=== PATIENT | female | born 1945 | race Caucasian/White ===

== ENCOUNTER → 2017-08-20 | Outpatient (CLI) | payer BC, MEDICARE | END | disposition home or self-care (01) | LOC: LABWHC1 11:18 | PROVIDERS: ATTEND Family Medicine | DX: E87.5 Hyperkalemia (principal) | CPT/HCPCS: 36415; 84132 ==

== ENCOUNTER → 2018-07-23 | Outpatient (CLI) | payer OTHER, MEDICARE ==
--- NOTE | 2018-07-23 22:00 | CONS ---
CONSULTATION DATE OF SERVICE: 07/23/2018. HISTORY: A 73-year-old old lady has been re-evaluated in Sleep Center for obstructive sleep apnea-hypopnea syndrome. INDICATIONS: The patient has a history of severe obstructive sleep apnea since 2010. At that time, apnea-hypopnea index 44.9 with oxygen desaturation to 86%. Since that time, patient is on treatment with CPAP with a pressure of 10 cm of water. C continued to use her equipment for this years, but presently she cannot use her machine because mask is broken. Sleep schedule is from 11 p.m. to 9 or 10 a.m. Sometimes she has problems with falling asleep. She has TV set in bedroom. She wakes up from sleep 3 times with nocturia. In the morning she wakes up tired. She may fall asleep during the day. Has episodes of irritability and depression. [place] Sleepiness Scale is 10. PAST MEDICAL HISTORY: Positive for hypertension, aortic dissection in the chest, stroke, left leg DVT. MEDICATIONS: 1. Metoprolol. 2. Folic acid. 3. Atorvastatin. 4. Omeprazole. 5. Metformin. 6. Losartan. 7. Citalopram. 8. Gabapentin. SOCIAL HISTORY: Negative for smoking or using alcohol. FAMILY HISTORY: Hypertension, heart problems, hyperlipidemia, arthritis, asthma, bronchitis, snoring, pneumonia, headaches, cancer. REVIEW OF SYSTEMS: Awakenings from sleep, sleepiness during the day. PHYSICAL EXAM: A 73-year-old lady without distress on wheelchair. BP 108/73, HR 64, RR 17, height 58.5 inches, weight 178.2 pounds, body mass index 39.2, temperature 97.7, oxygen saturation at room air 98%. HEENT: Oropharynx low position of soft palate. NECK: Supple. No JVD. Thyroid is not palpable. LUNGS Clear to percussion and to auscultation. Good air exchange. No wheezing or rhonchi. HEART S1, S2 regular. No murmurs, gallops, or rubs. ABDOMEN Obese, soft, nontender. Bowel sounds are present. No organomegaly appreciated. ABDOMEN: Obese. EXTREMITIES: Braces on her legs and on the left foot. Patient is in a wheelchair. CARTRIDGE BELT PUNCHER Awake, alert, and oriented X3. Cranial nerves 2 to 7 intact. There is no fasciculation or atrophy. noted. No focal deficits observed. IMPRESSION: 1. History of severe obstructive sleep apnea since 2010. Low position of soft palate. The patient continued to use CPAP equipment until the mask was broken. Presently sometimes snoring with CPAP machine when she was able to use it. 2. Hypertension. 3. Status post surgical treatment of aortic dissection in the chest. 4. History of stroke. 5. History of deep venous thrombosis of the left leg, left leg brace. 6. Acid reflux. 7. Hyperlipidemia. PLAN: 1. Prescription for all necessary CPAP supplies including mask, tube, filters. 2. Evaluate CPAP titration for evaluation of effective CPAP pressure at the present time. Previous sleep study done several years ago. The patient has awakenings from sleep while on treatment with CPAP. 3. Sleep hygiene with normal time in bed for at least 8 hours. 4. The patient does not drive. Thank you very much for allowing me to participate in management of your patient. Eliud Lara MD, PhD, FAASM Diplomat of [place] [employer] Specialties [employer] Board of Internal Medicine Coat Finisher of [facility] [place] MMODL / IJN: [id number] /
== END ==
LOC: SLEEP 15:32
PROVIDERS: ATTEND Internal Medicine
DX: G47.33 Obstructive sleep apnea (adult) (pediatric) (principal); I10 Essential (primary) hypertension; K21.9 Gastro-esophageal reflux disease without esophagitis; E78.5 Hyperlipidemia, unspecified; Z86.718 Personal history of other venous thrombosis and embolism; Z86.73 Personal history of transient ischemic attack (TIA), and cerebral infarction without residual deficits; Z99.89 Dependence on other enabling machines and devices; Z98.890 Other specified postprocedural states
CPT/HCPCS: 99211

== ENCOUNTER → 2019-02-19 | Outpatient (CLI) | payer OTHER, MEDICARE ==
--- NOTE | 2019-02-19 11:45 | SFUN ---
SLEEP CENTER FOLLOW UP NOTE DATE OF SERVICE: 02/19/2019 A 74-year-old lady who has been followed in the Sleep Center for treatment of obstructive and central sleep apnea-hypopnea syndrome. Recently, patient had BiPAP titration, received new BiPAP unit and this is her first visit after she received her machine. Patient is able to sleep with the machine every night for the whole night and she feels better while she is using her BiPAP. She sleeps better but she still feels sleepiness during the day. [place] Sleepiness Scale of the normal range is 4. I checked her BiPAP unit. The pressure is 15/11 cm of water. Usage is 67/67 days and 64/67 days for more than 4 hours with average usage is 7.7 hours per night, which is great compliance. Leak 23 L/minute. Patient using full-face Dream Wear mask. Apnea- hypopnea index for that period of time 17.0 with total apnea index 16.1, and central apnea index 9.9 with the reading for 1 month. She has apnea-hypopnea index 16.3 with a central apnea index 9.5. MEDICATIONS: Metoprolol, folic acid, atorvastatin, omeprazole, metformin, losartan, citalopram, gabapentin, melatonin. PHYSICAL EXAM: Patient in no distress. She is in a wheelchair. BP 133/68, HR 52, RR 14m weight 179, temp 98.2. OROPHARYNX: Extremely low position of soft palate. Mallampati 4. ABDOMEN: Obese. Neck Supple, no JVD. Thyroid is not palpable. LUNGS Clear to percussion and to auscultation. Good air exchange. No wheezing or rhonchi. HEART S1, S2 regular. No murmurs, gallops, or rubs. EXTREMITIES No clubbing or cyanosis. SCALE ADJUSTER Awake, alert, and oriented X3. Cranial nerves 2 to 7 intact. There is no fasciculation or atrophy. noted. No focal deficits observed. IMPRESSION: 1. Obstructive and central sleep apnea-hypopnea syndrome. Patient demonstrated great compliance with treatment, benefitting from treatment. Original sleep study showed severe sleep apnea with apnea-hypopnea index 44.9. Presently on the machine apnea- hypopnea index reduced to 16.3 with a central apnea index 9.5. 2. Obesity. 3. Hypertension. 4. History of stroke. 5. History of deep venous thrombosis of left leg. 6. Acid reflux. 7. Hyperlipidemia. PLAN: 1. I will decrease pressure down to 14/10 cm of water with a goal to see less amount of central apneas. 2. Patient will continue to use BiPAP equipment every night for the whole night. 3. Watching and losing weight. 4. Sleep hygiene with regular time in bed for at least 8 hours. 5. Will maintain prescriptions for all necessary CPAP supplies. Thank you very much for allowing me to participate in the management of patient. Sincerely, Eliud Lara MD, PhD, FAASM Diplomat of [place] Board [employer] Medical Specialties [employer] Board of Internal Medicine Water And Gas Helper of [facility] [place] MMODL / IJN: [id number] /
== END ==
LOC: SLEEP 10:24
PROVIDERS: ATTEND Internal Medicine
DX: G47.33 Obstructive sleep apnea (adult) (pediatric) (principal); E66.9 Obesity, unspecified; I10 Essential (primary) hypertension; K21.9 Gastro-esophageal reflux disease without esophagitis; E78.5 Hyperlipidemia, unspecified; Z86.718 Personal history of other venous thrombosis and embolism; Z86.73 Personal history of transient ischemic attack (TIA), and cerebral infarction without residual deficits; Z99.89 Dependence on other enabling machines and devices; Z79.899 Other long term (current) drug therapy; Z79.84 Long term (current) use of oral hypoglycemic drugs

== ENCOUNTER → 2019-04-27 | Outpatient (CLI) | payer OTHER, MEDICARE ==
--- NOTE | 2019-04-27 19:57 | BD ---
EXAMINATION TYPE: Axial Bone Density DATE OF EXAM: 04/27/2019 COMPARISON: 07/06/2015 CLINICAL HISTORY: 74-year-old female with disorder of bone Height: 57 IN Weight: 178 LBS RISK FACTORS HISTORY OF: Family History of Osteoporosis: GRANDMOTHER (P), AUNT (P) Active: MINIMAL Diet low in dairy products/other sources of calcium: YES Postmenopausal woman: AGE 54 Take estrogen and/or progesterone medications: NOT NOW How long: AGE 52-53 MEDICATIONS: Thyroid Medications: YES Which medication: ARMOUR How Lon MONTHS Additional Medications: ARMOUR, ELIQUIS, METOPROLOL,FOLIC ACID, OMEPRAZOLE, ATORVASTATIN, LOSARTAN, M ETFORMIN, AMLODIPINE, FREQUENT URINATION PILL, MOOD SWINGS,MED EXAM MEASUREMENTS: Bone mineral densitometry was performed using the [employer] System. Bone mineral density as measured about the Lumbar spine is: ----- L1-L4(G/cm2): 1.125 T Score Values are as follows: ----- L2: -1.2 ----- L3: 0.6 ----- L4: 0.2 ----- L1-L4: -0.5 Bone mineral density has: Increased 8.6% since study of: 07/06/2015 Bone mineral density about the R hip (g/cm2): 0.683 Bone mineral density about the L hip (g/cm2): 0.676 T Score values are as follows: -----R Neck: -2.6 -----L Neck: -2.6 -----R Total: -2.3 -----L Total: -3.0 Bone mineral density has: Decreased -3.0% since study of: 07/06/2015 IMPRESSION: Osteoporosis (T Score less than -2.5). There is increased fracture risk and therapy is usually indicated based on age. Re-Screen 1-2 years. NOTE: T-SCORE=SD OF THE YOUNG ADULT MEAN.
== END | disposition home or self-care (01) ==
LOC: RADBDWWP 08:38
PROVIDERS: ATTEND Family Medicine
DX: M81.0 Age-related osteoporosis without current pathological fracture (principal)
CPT/HCPCS: 77080

== ENCOUNTER → 2019-05-21 | Outpatient (CLI) | payer OTHER, MEDICARE ==
--- NOTE | 2019-05-21 11:28 | SFUN ---
SLEEP CENTER FOLLOW UP NOTE DATE OF SERVICE: 05/21/2019 This 74-year-old lady had been followed in sleep center for treatment of obstructive and central sleep apnea-hypopnea syndrome. During previous visit, I changed her regimen of BiPAP machine because she continued to have significant abnormalities of respiration. The patient feels well with the machine, she likes the level of the pressure. She is able to sleep with the machine well. [place] Sleepiness Scale today is 9. I checked BiPAP unit. Maximal inspiratory pressure 15, minimal expiratory pressure 4, pressure support 4. average pressure 14.3/10.3. Apnea-hypopnea index reading 18.6 with apnea index 17.3, and central index 7 for the last month. MEDICATIONS: Metoprolol, folic acid, atorvastatin, omeprazole, metformin, losartan, citalopram, gabapentin, melatonin. PHYSICAL EXAMINATION: During physical exam, patient in no distress. VITAL SIGNS: BP 138/72, HR 58, RR 16, height 4 feet 8-1/2 inches. Weight 177 pounds which is 2 pounds less than during previous visit. HEENT: PERRLA, EOMI. Oropharynx extremely low position of soft palate. Mallampati 4. NECK: Supple, no JVD. Thyroid is not palpable. LUNGS: Clear to percussion and to auscultation. Good air exchange. No wheezing or rhonchi. HEART: S1, S2 regular. No murmurs, gallops, or rubs. ABDOMEN: Obese. EXTREMITIES No clubbing or cyanosis. POWDER MILL OPERATOR Awake, alert, and oriented X3. Cranial nerves 2 to 7 intact. There is no fasciculation or atrophy. noted. No focal deficits observed. IMPRESSION: 1. Obstructive and central sleep apnea-hypopnea syndrome. Patient demonstrated great compliance with treatment, but reading from the machine still showed abnormalities of respiration with apnea-hypopnea index 18.6. Original sleep study showed severe sleep apnea-hypopnea syndrome with apnea-hypopnea index 44.9. 2. Hypertension. 3. Obesity. 4. History of stroke. 5. History of deep venous thrombosis of left leg. 6. Acid reflux. 7. Hyperlipidemia. PLAN: 1. I will adjust maximal inspiratory pressure to 17.4. 2. Patient will continue to use equipment every night for the whole night. 3. Watching and losing weight. 4. Sleep hygiene with regular time in bed for at least 8 hours. 5. Follow-up visit in 2 months or earlier if patient feels any problems. Thank you very much for allowing me to participate in management of your patient. Sincerely, Eliud Lara MD, PhD, FAASM Diplomat of [place] [employer] Medical Specialties [employer] Board of Internal Medicine Diversified Crops Farmer of [facility] [place] MMODL / DORONN: [id number] /
== END ==
LOC: SLEEP 10:15
PROVIDERS: ATTEND Internal Medicine
DX: G47.33 Obstructive sleep apnea (adult) (pediatric) (principal); I10 Essential (primary) hypertension; E66.9 Obesity, unspecified; K21.9 Gastro-esophageal reflux disease without esophagitis; E78.5 Hyperlipidemia, unspecified; Z86.73 Personal history of transient ischemic attack (TIA), and cerebral infarction without residual deficits; Z86.718 Personal history of other venous thrombosis and embolism; Z79.899 Other long term (current) drug therapy; Z79.84 Long term (current) use of oral hypoglycemic drugs

== ENCOUNTER → 2019-06-12 | Outpatient (CLI) | payer OTHER, MEDICARE ==
--- NOTE | 2019-06-12 10:35 | CT ---
EXAMINATION TYPE: CT abdomen pelvis wo con DATE OF EXAM: 06/12/2019 COMPARISON: 11/17/2013 HISTORY: bladder pain CT DLP: 751.7 mGycm Automated exposure control for dose reduction was used. TECHNIQUE: Helical acquisition of images was performed from the lung bases through the pelvis. FINDINGS: LUNG BASES: Heart is enlarged. Coronary artery calcification noted and there is atherosclerotic herrera e of the aorta. Sternotomy wires are seen. Subsegmental changes involving the lungs are typical of at electasis. LIVER/GB: Postcholecystectomy changes noted. PANCREAS: No significant abnormality is seen. SPLEEN: No significant abnormality is seen. ADRENALS: No significant abnormality is seen. KIDNEYS: No significant abnormality is seen. URINARY BLADDER: No significant abnormality is seen. ADENOPATHY: None visualized. OSSEOUS STRUCTURES: Hypertrophic and degenerative change of the spine. Scoliosis noted. BOWEL: Bowel gas pattern nonspecific with changes of diverticulosis. There is a hiatal hernia. OTHER: Uterus atrophic. Femorofemoral bypass graft noted. Atherosclerotic change of the aorta with no evidence of aneurysm. Lack of contrast limits assessment of the vasculature. IMPRESSION: 1. Diverticulosis of the colon
== END | disposition home or self-care (01) ==
LOC: RADCTMAIN 09:50
PROVIDERS: ATTEND Family Medicine
DX: K57.30 Diverticulosis of large intestine without perforation or abscess without bleeding (principal)
CPT/HCPCS: 74176

== ENCOUNTER → 2019-07-30 | Outpatient (CLI) | payer OTHER, MEDICARE ==
--- NOTE | 2019-07-30 13:11 | SFUN ---
SLEEP CENTER FOLLOW UP NOTE DATE OF SERVICE: 07/30/2019. A 74-year-old lady who has been followed in the Sleep Center for treatment of obstructive and central sleep apnea-hypopnea syndrome. Patient continued to use BiPAP equipment every night for the whole night. She sleeps well with that. There is no snoring. She is getting all her supplies in time. [place] Sleepiness Scale today is 7 which is normal. During the previous visit, apnea-hypopnea index was 18.6 with apnea index 17.3, and central index 7. At that time her maximal pressure was 15 and minimal was 14 and I increased the maximal inspiratory pressure to 17.4. I checked her BiPAP unit today, maximal inspiratory pressure 17.4, minimal respiratory pressure 4.0, pressure support 4.0 usage. Usage is 100% of the night, more than 4 hours with average usage 9.4 hours per night. Average pressure 14.7/10.7. Leak is only 1 L/minute, which is absolutely perfect. Apnea-hypopnea index 12.6 with apnea index alone 0.6 and central apnea index 5.6 which showed improvement comparing with the reading during previous visit, after pressure was increased to 17.4. MEDICATIONS: Metoprolol, folic acid, atorvastatin, omeprazole, metformin, losartan, citalopram, gabapentin, melatonin. PHYSICAL EXAM: Patient in no distress, on wheelchair. BP 123/58, HR 59, RR 16, height 4, 11, weight 182.2, which is about 5 pounds more than during the previous visit. Body mass index 36.7, temperature 97.0, oxygen saturation on room air 96%. Oral oropharynx extremely low position of soft palate. Mallampati 4. ABDOMEN: Obese. NECK: Supple, no JVD. Thyroid is not palpable. LUNGS: Clear to percussion and to auscultation. Good air exchange. No wheezing or rhonchi. HEART: S1, S2 regular. No murmurs, gallops, or rubs. EXTREMITIES: No clubbing or cyanosis. CLAIMS SUPERVISOR: Awake, alert, and oriented X3. Cranial nerves 2 to 7 intact. There is no fasciculation or atrophy. noted. No focal deficits observed. IMPRESSION: 1. Obstructive and central sleep apnea-hypopnea syndrome. Patient demonstrated 100% compliance with treatment, benefitting from treatment. 2. Patient still has some abnormalities of respiration according to the machine with total apnea-hypopnea index 12.6 and central apnea index 5.6. 3. Hypertension. 4. Obesity. 5. History of stroke. 6. History of deep venous thrombosis of left leg. 7. Acid reflux. 8. Hyperlipidemia. PLAN: 1. I will increase maximal inspiratory pressure to 19. Patient will continue to use equipment every night for the whole night. 2. A followup visit in 2 months. 3. Patient will continue to have significant respiratory abnormalities, we will consider to repeat sleep study with BiPAP on ST mode machine. 4. Patient does not drive. Thank you very much for allowing me to participate in the management of your patient. Sincerely, Eliud Lara MD, PhD, FAASM Diplomat of [place] [employer] of Medical Specialties [place] [employer] of Internal Medicine Pre School Manager of [facility] [place] MMJUAN / CHARLEEN: [id number] /
== END | disposition home or self-care (01) ==
LOC: SLEEP 11:20
PROVIDERS: ATTEND Internal Medicine
DX: G47.33 Obstructive sleep apnea (adult) (pediatric) (principal); I10 Essential (primary) hypertension; E66.9 Obesity, unspecified; K21.9 Gastro-esophageal reflux disease without esophagitis; Z68.36 Body mass index [BMI] 36.0-36.9, adult; E78.5 Hyperlipidemia, unspecified; Z86.718 Personal history of other venous thrombosis and embolism; Z86.73 Personal history of transient ischemic attack (TIA), and cerebral infarction without residual deficits; Z79.84 Long term (current) use of oral hypoglycemic drugs; Z79.899 Other long term (current) drug therapy

== ENCOUNTER → 2020-04-21 | Outpatient (CLI) | payer OTHER, MEDICARE ==
--- NOTE | 2020-04-22 04:07 | SFUN ---
SLEEP CENTER FOLLOW UP NOTE DATE OF SERVICE: 04/21/2020 This is a 75-year-old lady who has been followed in Sleep Center for treatment of obstructive and central sleep apnea-hypopnea syndrome. Patient continued to use her BiPAP equipment every night for the whole night. Sometimes she feels there is a significant leak from her mask. [place] Sleepiness Scale today is 6. I checked her BiPAP unit. Maximal inspiratory pressure 19, minimal expiratory pressure of 4, pressure support is 4.0. Usage is 27 out of 30 nights for more than 4 hours with average usage 6.6 hours per night, which is great compliance. Average pressure is 14/10 cm of water. Leak is 25 L/minute. Apnea-hypopnea index significantly increased to 19.0 with central apnea-hypopnea index 6.2. MEDICATIONS: 0.5 mg, fenofibrate 145 mg, amlodipine 2.5 mg, Symbicort 160-4.5, Spiriva 1.25 mcg inhalation, metoprolol 50 mg, Eliquis 5 mg, atorvastatin 40 mg, citalopram 20 mg, omeprazole 20 mg, metformin 500 mg. PHYSICAL EXAMINATION: GENERAL: Patient in no distress on wheelchair. VITAL SIGNS: BP 141/64, HR 71, RR 16, height 4 feet 11 inches, weight 183.8, body mass index 37.8, temperature 98.1, oxygen saturation at room air 96%. HEENT: PERRLA, EOMI. Oropharynx extremely low position of soft palate. NECK: Supple, no JVD. Thyroid is not palpable. LUNGS: Clear to percussion and to auscultation. Good air exchange. No wheezing or rhonchi. HEART: S1, S2 regular. No murmurs, gallops, or rubs. ABDOMEN: Soft and nontender. Bowel sounds are present. No organomegaly appreciated. EXTREMITIES: No clubbing or cyanosis. GAS ENGINE OPERATOR: Awake, alert, and oriented x3. Cranial nerves 2 to 7 intact. There is no fasciculation or atrophy. noted. No focal deficits observed. IMPRESSION: 1. Obstructive and central sleep apnea hypopnea syndrome. Patient demonstrated great compliance with treatment, benefitting from treatment, but presently her apnea- hypopnea index increased. 2. Hypertension. 3. Obesity. 4. History of stroke. 5. History of deep venous thrombosis of left leg. 6. Acid reflux. 7. Hyperlipidemia. PLAN: 1. The patient will continue to use BiPAP equipment every night for the whole night. 2. To replace all her CPAP supplies, prescription has been written because she has significant leak from the mask. 3. Patient will continue to use equipment every night for the whole night. 4. Watching and losing weight. 5. Patient does not drive. 6. Follow-up visit in 3 months. 7. The patient is a candidate to repeat titration with possibly usage of BiPAP ST mode. Sincerely, Eliud Lara MD, PhD, FAASM Diplomat of [place] [employer] of Medical Specialties [employer] Board of Internal Medicine Senior Staff Consultant of [facility] [place] MMODL / IJN: [id number] /
== END | disposition home or self-care (01) ==
LOC: SLEEP 16:48
PROVIDERS: ATTEND Internal Medicine
DX: G47.33 Obstructive sleep apnea (adult) (pediatric) (principal); I10 Essential (primary) hypertension; E66.9 Obesity, unspecified; K21.9 Gastro-esophageal reflux disease without esophagitis; E78.5 Hyperlipidemia, unspecified; Z99.89 Dependence on other enabling machines and devices; Z86.718 Personal history of other venous thrombosis and embolism; Z86.73 Personal history of transient ischemic attack (TIA), and cerebral infarction without residual deficits

== ENCOUNTER → 2020-07-21 | Outpatient (CLI) | payer OTHER, MEDICARE ==
--- NOTE | 2020-07-21 16:43 | SFUN ---
SLEEP CENTER FOLLOW UP NOTE DATE OF SERVICE: 07/21/2020 A 75-year-old lady who has been followed in the Sleep Center for treatment of obstructive sleep apnea and central sleep apnea-hypopnea syndrome. Patient continued to use her BiPAP equipment every night. She does not complain on the quality of sleep. [place] Sleepiness Scale today is 5. I checked her BiPAP unit. I had some automatic regimen maximal inspiratory pressure 19, minimal expiratory pressure 4, pressure support is 4. Average BiPAP pressure 14.8/10.8 cm of water. Usage is 23/30 nights for more than 4 hours with average usage of 6.7 hours per night, which is good compliance. Sleep 28 L/minute. Apnea-hypopnea index is high, it is 25.2, and central apnea-hypopnea index 12.5. MEDICATIONS: Fenofibrate, amlodipine, Symbicort, Spiriva, metoprolol 50 mg once a day, atorvastatin 10 mg once a day. Citalopram 20 mg once a day. Omeprazole 20 mg once a day, metformin 500 mg once a day. Folic acid. PHYSICAL EXAM: Patient in in a wheelchair. BP 105/66, HR 70, RR 15, height 4, 11, weight 183, BMI 37.8, temperature 97.6, oxygen saturation at room air 98%. OROPHARYNX: Extremely low position of soft palate. Mallampati 4. IMPRESSION: 1. Obstructive and central sleep apnea-hypopnea syndrome. Patient demonstrated good compliance with treatment, but apnea-hypopnea index reading from the machine is in high range. Apnea-hypopnea index 25.2, which includes central apnea-hypopnea index 12.5. 2. Hypertension. 3. History of stroke. 4. Status post recent rectal bleeding, she was in the hospital. Bleeding stopped. Eliquis was stopped. No recent bleed. No bleeding after changing of medication. 5. History of deep venous thrombosis of left leg. 6. Acid reflux. 7. Hyperlipidemia. PLAN: 1. Related BiPAP titration with ST mode correction of respiratory abnormalities during sleep. 2. Watching weight. 3. The patient does not drive. Thank you very much for allowing me to participate in the management of your patient. Sincerely, Eliud Lara MD, PhD, FAASM Diplomat of [place] [employer] Medical Specialties [employer] Board of Internal Medicine Showcase Maker of [facility] [place] MMODL / IJMatthieu: [id number] /
== END | disposition home or self-care (01) ==
LOC: SLEEP 13:05
PROVIDERS: ATTEND Internal Medicine
DX: G47.33 Obstructive sleep apnea (adult) (pediatric) (principal); I10 Essential (primary) hypertension; E78.5 Hyperlipidemia, unspecified; K21.9 Gastro-esophageal reflux disease without esophagitis; Z86.73 Personal history of transient ischemic attack (TIA), and cerebral infarction without residual deficits; Z79.899 Other long term (current) drug therapy; Z99.89 Dependence on other enabling machines and devices; Z86.718 Personal history of other venous thrombosis and embolism

== ENCOUNTER → 2020-11-17 | Outpatient (CLI) | payer OTHER, MEDICARE ==
--- NOTE | 2020-11-17 12:50 | SFUN ---
SLEEP CENTER FOLLOW UP NOTE DATE OF SERVICE: 11/17/2020 This 75-year-old lady had been followed in Sleep Center for treatment of obstructive and central sleep apnea-hypopnea syndrome. Recently the patient had BiPAP titration with BiPAP ST mode and the patient received her new PAP therapy unit which is BiPAP ST machine. Today is her first visit after she was started on treatment with BiPAP ST therapy. During the previous visit when the patient was on treatment with BiPAP, her apnea- hypopnea index was 25.2 with central apnea-hypopnea index 12.5, that is why we did the titration with BiPAP ST mode and switch her to BiPAP ST unit. The patient sleeps well with the machine, except she feels that at the beginning her pressure is too high. [place] Sleepiness Scale today is 10. I checked her BiPAP unit. Pressure is 15/11, respiratory rate 12, usage 30 out of 30 nights for more than 4 hours with average usage is 6.7 hours per night. Leak is quite high 32 L/minute. Apnea-hypopnea index for the last month is 10.8, which includes apnea index 2.7, but machine does not indicate what type of apnea index it is, central or obstructive. Ramp is off on the machine. MEDICATIONS: Fenofibrate, amlodipine, Symbicort, Spiriva, metoprolol 50 mg once a day, atorvastatin 10 mg once a day, citalopram 20 mg once a day, omeprazole 20 mg once a day, metformin 500 mg once a day, folic acid. PHYSICAL EXAMINATION: GENERAL: Patient in no distress. VITAL SIGNS: BP 142/70, HR 65, RR 12, weight 183.0, temperature 96.4, oxygen saturation at room air 94%. HEENT: PERRLA, EOMI. Oropharynx extremely low position of soft palate, Mallampati 4 NECK: Supple, no JVD. Thyroid is not palpable. LUNGS: Clear to percussion and to auscultation. Good air exchange. No wheezing or rhonchi. HEART: S1, S2 regular. No murmurs, gallops, or rubs. ABDOMEN: Obese. EXTREMITIES: No clubbing or cyanosis. PICK REMOVER: Awake, alert, and oriented X3. Cranial nerves 2 to 7 intact. There is no fasciculation or atrophy. noted. No focal deficits observed. Patient is in wheelchair. IMPRESSION: 1. Obstructive sleep apnea and central sleep apnea-hypopnea syndrome. The patient demonstrated 100% compliance with treatment, benefitting from treatment, respiration on BiPAP ST mode improved comparing with regular BiPAP unit, still mild abnormalities of respiration. 2. Hypertension. 3. History of stroke. 4. Status post rectal bleed. 5. History of deep venous thrombosis of left leg. 6. Acid reflux. 7. Hyperlipidemia. PLAN: 1. I changed ramp time from 0 to 30 minutes. 2. Continue treatment with BiPAP ST mode every night for the whole night. 3. Watching and losing weight. 4. Patient does not drive. 5. Followup visit in 3 months because machine still showed mild abnormalities of respiration. Thank you very much for allowing me to participate in management of your patient. Sincerely, Eliud Lara MD, PhD, FAASM Diplomat of Citizen Of [place] Board of Medical Specialties Citizen Of [place] Board of Internal Medicine Glue Jointer Feeder of [facility] [place] MMODL / DORONN: [id number] /
== END ==
LOC: SLEEP 10:15
PROVIDERS: ATTEND Internal Medicine
DX: G47.33 Obstructive sleep apnea (adult) (pediatric) (principal); G47.31 Primary central sleep apnea; I10 Essential (primary) hypertension; Z86.73 Personal history of transient ischemic attack (TIA), and cerebral infarction without residual deficits; K62.5 Hemorrhage of anus and rectum; K21.9 Gastro-esophageal reflux disease without esophagitis; E78.5 Hyperlipidemia, unspecified; Z86.718 Personal history of other venous thrombosis and embolism

== ENCOUNTER → 2021-02-22 | Outpatient (CLI) | payer OTHER, MEDICARE ==
--- NOTE | 2021-02-22 20:39 | SFUN ---
SLEEP CENTER FOLLOW UP NOTE DATE OF SERVICE: 02/22/2021 76-year-old lady has been followed in Sleep Center for treatment of obstructive and central sleep apnea-hypopnea syndrome. Patient continued to use her BiPAP ST mode equipment every night, but leak from the mask sometimes opens her mouth during sleep. Otherwise according to her she sleeps so well. I checked her BiPAP unit. Pressure is 15/11, respiratory rate in the steam mode 12. Usage is 30 out of 30 nights for more than 4 hours. Leak is high 42 L/minute. Apnea- hypopnea index increased to 17.3 with apnea index 3.6. [place] Sleepiness Scale today is 8. MEDICATIONS: Eliquis 5 mg twice a day. Metoprolol 100 mg twice a day. Folic acid 1 mg once a day. Citalopram 20 mg once a day, atorvastatin 40 mg once a day. Omeprazole 20 mg once a day, metformin 500 mg once a day, gabapentin 100 mg as needed, Myrbetriq 50 mg once a day. PHYSICAL EXAM: 76-year-old lady on a wheelchair without distress. BP 142/79, HR 60, RR 15. Height 4 feet 8 inches, weight 190. Body mass index 42.5. Temperature 98.4, oxygen saturation at room air 96%. Oropharynx: Extremely low position of soft palate. Mallampati 4. NECK: Supple, no JVD. Thyroid is not palpable. LUNGS: Clear to percussion and to auscultation. Good air exchange. No wheezing or rhonchi. HEART: S1, S2 regular. No murmurs, gallops, or rubs. ABDOMEN: Obese. Soft and nontender. Bowel sounds are present. No organomegaly appreciated. EXTREMITIES: No clubbing or cyanosis. RECORDAK OPERATOR: Awake, alert, and oriented X3. Cranial nerves 2 to 7 intact. There is no fasciculation or atrophy. noted. No focal deficits observed. IMPRESSION: 1. Obstructive and central sleep apnea-hypopnea syndrome patient demonstrated 100% compliance in treatment, benefitting from treatment. The patient still has some abnormalities of respiration on BiPAP ST unit. 2. Hypertension. 3. History of stroke. 4. Status post rectal bleed. 5. History of deep venous thrombosis of left leg. 6. Acid reflux. 7. Hyperlipidemia. PLAN: 1. I increased level of BiPAP pressure to 16/12 cm of water. 2. Prescription for chin strap. 3. Followup visit in 2 months. 4. Losing weight. The patient increased weight comparing with the previous visit. 5. Patient does not drive. Thank you very much for allowing me to participate in management of your patient. Sincerely, Eliud Lara MD, PhD, FAASM Diplomat of [employer] Board Member of [facility] [place] MMODL / IJN: [id number] /
== END ==
LOC: SLEEP 10:02
PROVIDERS: ATTEND Internal Medicine
DX: G47.33 Obstructive sleep apnea (adult) (pediatric) (principal); I10 Essential (primary) hypertension; E78.5 Hyperlipidemia, unspecified; K21.9 Gastro-esophageal reflux disease without esophagitis; Z86.718 Personal history of other venous thrombosis and embolism; Z86.73 Personal history of transient ischemic attack (TIA), and cerebral infarction without residual deficits; Z99.89 Dependence on other enabling machines and devices; Z79.899 Other long term (current) drug therapy; Z88.2 Allergy status to sulfonamides

== ENCOUNTER → 2021-05-25 | Outpatient (CLI) | payer OTHER, MEDICARE ==
--- NOTE | 2021-05-25 19:07 | SFUN ---
SLEEP CENTER FOLLOW UP NOTE DATE OF SERVICE: 05/25/2021 This 76-year-old lady has been followed in Sleep Center for treatment of obstructive sleep apnea and central sleep apnea-hypopnea syndrome. The patient continues to use her BiPAP ST mode equipment every night. [place] Sleepiness Scale today is 4, which is normal. She feels less sleepy now than before. During the previous visit, I adjusted the pressure in her machine slightly higher because apnea-hypopnea index was increased. I checked her BiPAP unit today. Pressure is 16/12 ST mode with respiratory rate 12, usage 30/30 nights for more than 4 hours. Average 9 hours per night. Leak is 6 L/minute, which is perfect. Apnea-hypopnea index is still high; less than during the previous visit, when it was 17.3. Today is 15.5. Average for the last month including apnea index 8.4. MEDICATIONS: 1. Eliquis 5 mg twice a day. 2. Metoprolol 100 mg in the morning, 50 mg afternoon. 3. Myrbetriq 50 mg once a day. 4. [place] Thyroid 30 mg once a day. 5. Citalopram 20 mg once a day. 6. Atorvastatin 40 mg once a day. 7. Omeprazole 20 mg once a day. 8. Metformin 500 mg once a day. 9. Gabapentin 100 mg as needed. PHYSICAL EXAMINATION: GENERAL: Pleasant patient in no distress. This is a 76-year-old lady in a wheelchair. VITAL SIGNS: BP 173/79, HR 65, RR 15, height 4 feet 10-1/2 inches, weight 187.8 pounds, body mass index 38.4. HEENT: PERRCRISTÓBAL, EOMI, evaluation of oropharynx showed tongue protrudes midline. Extremely low position of soft palate; Mallampati IV. NECK: Supple, no JVD. Thyroid is not palpable. LUNGS: Clear to percussion and to auscultation. Good air exchange. No wheezing or rhonchi. HEART: S1, S2 regular. No murmurs, gallops, or rubs. ABDOMEN: Obese. EXTREMITIES: No clubbing or cyanosis. PLANT AND MAINTENANCE TECHNICIAN: Awake, alert, and oriented X3. Cranial nerves 2 to 7 intact. There is no fasciculation or atrophy. noted. No focal deficits observed. IMPRESSION: 1. Obstructive and central sleep apnea-hypopnea syndrome. Patient demonstrated 100% compliance with treatment, benefitting from treatment. Apnea-hypopnea index improved compared to the previous visit after pressure was slightly increased, but still above normal range. 2. Hypertension. Blood pressure increased today in the office. 3. History of stroke. 4. Status post rectal bleed. 5. History of deep venous thrombosis of left leg. 6. Acid reflux. 7. Hyperlipidemia. PLAN: 1. I increased pressure in the machine to 17/13 cm of water. Continue to use ST mode with respiratory rate 12. 2. Monitoring blood pressure. The patient should have a blood pressure monitor at home and follow with her primary case care physician and auto repair shop manager for monitoring blood pressure. 3. Low-sodium diet. 4. Patient will continue to use PAP equipment every night for the whole night. 5. Sleep hygiene with regular time in bed for at least 7-1/2 to 8 hours. 6. The patient does not drive. 7. I will maintain all necessary prescription for PAP supplies including mask, tube, filters. 8. Watching weight. 9. Follow-up visit in 3 months or earlier if patient has any problems. Thank you very much for allowing me to participate in the management of your patient. Sincerely, Eliud Lara MD, PhD, FAASM Diplomat of [employer] [employer] Sleep Medicine Board of [place] [employer] Die Tripper of [facility] [place] MARTY / CHARLEEN: [id number] /
== END ==
LOC: SLEEP 13:04
PROVIDERS: ATTEND Internal Medicine
DX: G47.33 Obstructive sleep apnea (adult) (pediatric) (principal); I10 Essential (primary) hypertension; K21.9 Gastro-esophageal reflux disease without esophagitis; E78.5 Hyperlipidemia, unspecified; Z86.718 Personal history of other venous thrombosis and embolism; Z86.73 Personal history of transient ischemic attack (TIA), and cerebral infarction without residual deficits; Z87.19 Personal history of other diseases of the digestive system; Z99.89 Dependence on other enabling machines and devices; Z79.899 Other long term (current) drug therapy; Z88.2 Allergy status to sulfonamides

== ENCOUNTER → 2021-08-24 | Outpatient (CLI) | payer OTHER, MEDICARE ==
--- NOTE | 2021-08-24 14:47 | SLS ---
SLEEP STUDY DATE OF SERVICE: 08/24/2021. 76-year-old lady has been followed in Sleep Center for treatment of obstructive sleep apnea-hypopnea syndrome. The patient continues to use her CPAP equipment every night, getting her supplies in time. Recently, after she gets her Dream Wear mask the first several days she used it without any leaking, but then leak started and the patient complains on that. [place] Sleepiness Scale today is 6. I checked her BiPAP ST mode unit. Pressure is 17/13 cm of water with respiratory rate 12, usage is 22/30 nights more than 4 hours, average 8.5 hours per night. Leak is 30 L/minute, which is borderline. Apnea-hypopnea index is 7.2, which is better than during the previous visit. MEDICATIONS: Eliquis 5 mg twice a day, metoprolol 100 mg twice a day, atorvastatin 40 mg once a day, citalopram 20 mg once a day, [place] thyroid 60 mcg once a day, omeprazole 20 mg once a day, folic acid 1 mg once a day, losartan 50 mg once a day, metformin 500 mg once a day. PHYSICAL EXAMINATION: GENERAL: Patient in no distress BP 162/84, HR 61, RR 18, weight 190.6, temperature 97.3, oxygen saturation at room air 96%. The patient increased weight on 3 pounds compared with the previous visit. The patient is is a wheelchair. Oropharynx: Extremely low position of soft palate, Mallampati 4. NECK: Supple, no JVD. Thyroid is not palpable. LUNGS: Clear to percussion and to auscultation. Good air exchange. No wheezing or rhonchi. HEART: S1, S2 regular. No murmurs, gallops, or rubs. ABDOMEN: Obese. Soft and nontender. Bowel sounds are present. No organomegaly appreciated. EXTREMITIES: No clubbing or cyanosis. AVIONICS SYSTEMS TECHNICIAN: Awake, alert, and oriented X3. Cranial nerves 2 to 7 intact. There is no fasciculation or atrophy. noted. No focal deficits observed. IMPRESSION: 1. Obstructive sleep apnea-hypopnea syndrome. Patient demonstrated good compliance with treatment. Apnea-hypopnea index improved after previous adjustment. The patient has a leak from the mask. Apnea-hypopnea index 7.2. 2. Hypertension. 3. History of stroke. 4. Status post rectal bleed. 5. History of deep venous thrombosis of left leg. 6. Acid reflux. 7. Hyperlipidemia. PLAN: 1. Monitoring blood pressure low-sodium diet. 2. We explained to the patient how to put mask on correctly. She put it too tight, and this is the reason for the leak. If not to put it tight, the air goes to the mask and adjusts to the mask to be sure there is no leak. 3. Patient will continue to use PAP equipment every night for the whole night. 4. Sleep hygiene with regular time in bed for at least 7-1/2 to 8 hours. 5. Precautions related to driving. No driving if feeling sleepiness. 6. I will maintain all necessary prescription for PAP supplies including mask, tube, filters. 7. Watching weight. 8. Follow-up visit in 6 months or earlier if patient has any problems. Thank you very much for allowing me to participate in management of your patient. Sincerely, Eliud Lara MD, PhD, FAASM Diplomat of [employer] Sleep Medicine Board of [employer] Board of Internal Medicine Pneumatic Jacketer of [facility] [place] MMJUAN / CHARLEEN: [id number] /
== END ==
LOC: SLEEP 10:55
PROVIDERS: ATTEND Internal Medicine
DX: G47.33 Obstructive sleep apnea (adult) (pediatric) (principal); I10 Essential (primary) hypertension; K21.9 Gastro-esophageal reflux disease without esophagitis; E78.5 Hyperlipidemia, unspecified; Z87.19 Personal history of other diseases of the digestive system; Z86.73 Personal history of transient ischemic attack (TIA), and cerebral infarction without residual deficits; Z86.718 Personal history of other venous thrombosis and embolism; Z79.01 Long term (current) use of anticoagulants; Z79.899 Other long term (current) drug therapy; Z88.2 Allergy status to sulfonamides

== ENCOUNTER 2021-09-09 01:15 | Emergency (ER) | payer OTHER, MEDICARE ==
[2021-09-09 01:26] VITALS: TEMP 98.1
[2021-09-09] MEDS ORDERED: OXYMETAZOLINE 0.05% NASL SPRAY 1 SPRAY BOTTLE NASAL STA (01:50)
[2021-09-09] MEDS ORDERED: cloNIDine HCL 0.2 MG TAB PO STA (01:50)
[2021-09-09] MEDS ORDERED: TRANEXAMIC ACID 1,000 MG in SODIUM CHLORIDE 0.9% 100 ML IVPB ONE (02:00)
[2021-09-09 02:24] LABS: HCT 40.6 % (34.0-46.0); HGB 13.1 gm/dL (11.4-16.0); MCH 29.2 pg (25.0-35.0); MCHC 32.2 g/dL (31.0-37.0); MCV 90.7 fL (80.0-100.0); Platelet Count 245 k/uL (150-450); RBC 4.48 m/uL (3.80-5.40); RDW 13.9 % (11.5-15.5); WBC 13.4 k/uL (3.8-10.6)
--- NOTE | 2021-09-09 02:27 | ED ---
ENT HPI - General Chief complaint: ENT Stated complaint: Nosebleed Time Seen by Provider: 09/09/21 01:49 Source: patient Mode of arrival: wheelchair Limitations: no limitations - History of Present Illness Initial comments: This patient is a 76-year-old woman with history of L Aquinas use who presents with epistaxis that had started tonight. She states that she did not have any trauma and cannot identify any inciting factors. She has previously had smaller nosebleeds that she states stopped spontaneously. Tonight the bleeding continued despite attempting to stop using pressure at home. Patient denies symptoms of anemia. No chest pain, dyspnea, diaphoresis, lightheadedness, syncope. MD complaint: epistaxis -: hour(s) Location: nose Severity scale (1-10): 0 Consistency: constant Improves with: none Worsens with: none Context-Epistaxis: history of similar, other - Related Data Home Medications Medication Instructions Recorded Confirmed Aspirin 325 mg PO DAILY 08/09/20 08/09/20 Atorvastatin [Lipitor] 40 mg PO DAILY 08/09/20 08/09/20 Citalopram Hydrobromide 1 tab PO DAILY 08/09/20 08/09/20 [Citalopram HBr] Ferrous Sulfate [Feosol] 325 mg PO DAILY 08/09/20 08/09/20 Folic Acid 1 tab PO DAILY 08/09/20 08/09/20 Gabapentin [Neurontin] 100 mg PO TID PRN 08/09/20 08/09/20 Metoprolol Tartrate [Lopressor] 1 tab PO BID 08/09/20 08/09/20 Omeprazole 1 tab PO DAILY 08/09/20 08/09/20 Thyroid,Pork [[place] Thyroid] 60 mg PO DAILY 08/09/20 08/09/20 amLODIPine [Norvasc] 5 mg PO DAILY 08/09/20 08/09/20 metFORMIN HCL 500 mg PO DAILY 08/09/20 08/09/20 Allergies Allergy/AdvReac Type Severity Reaction Status Date / Time Sulfa (Sulfonamide Allergy Unknown Verified 09/09/21 01:26 Antibiotics) Review of Systems ROS Statement: Those systems with pertinent positive or pertinent negative responses have been documented in the HPI. ROS Other: All systems not noted in ROS Statement are negative. Constitutional: Denies: fever, chills ENT: Reports: epistaxis Respiratory: Denies: cough, dyspnea Cardiovascular: Denies: chest pain, palpitations, orthopnea, syncope Gastrointestinal: Denies: abdominal pain, vomiting, diarrhea Skin: Denies: rash Neurological: Denies: headache, weakness Past Medical History Past Medical History: Hypertension Additional Past Medical History / Comment(s): leaky aorta, DVT History of Any Multi-Drug Resistant Organisms: None Reported Past Surgical History: Appendectomy, Cholecystectomy Additional Past Surgical History / Comment(s): aortic dissection, fem bypass left leg, carpal tunel right, eye lid surgery, cataract, Past Psychological History: No Psychological Hx Reported, Depression Smoking Status: Former smoker Past Alcohol Use History: None Reported Past Drug Use History: None Reported General Exam General appearance: alert, in no apparent distress Head exam: Present: atraumatic, normocephalic Eye exam: Present: normal appearance. Absent: scleral icterus, conjunctival injection ENT exam: Present: other (Patient examined with nose clip in place. There is some dark red blood posterior pharynx, no active bleeding. No active epistaxis.) Neck exam: Present: normal inspection, full ROM. Absent: tenderness Respiratory exam: Present: normal lung sounds bilaterally. Absent: respiratory distress, wheezes, rales, rhonchi, stridor Cardiovascular Exam: Present: regular rate, normal rhythm, normal heart sounds. Absent: systolic murmur, diastolic murmur, rubs, gallop GI/Abdominal exam: Present: soft. Absent: tenderness, guarding, rebound Extremities exam: Present: normal inspection, normal capillary refill. Absent: pedal edema, calf tenderness Skin exam: Present: warm, dry, intact, normal color. Absent: rash Course Vital Signs 09/09/21 09/09/21 01:21 01:25 Temperature 98.1 F Pulse Rate 70 70 Respiratory 19 18 Rate Blood Pressure 165/86 161/92 O2 Sat by Pulse 97 96 Oximetry Medical Decision Making - Lab Data Result diagrams: 09/09/21 02:05 09/09/21 02:05 Lab Results 09/09/21 09/09/21 Range/Units 02:05 02:05 WBC 13.4 H (3.8-10.6) k/uL RBC 4.48 (3.80-5.40) m/uL Hgb 13.1 (11.4-16.0) gm/dL Hct 40.6 (34.0-46.0) % MCV 90.7 (80.0-100.0) fL MCH 29.2 (25.0-35.0) pg MCHC 32.2 (31.0-37.0) g/dL RDW 13.9 (11.5-15.5) % Plt Count 245 (150-450) k/uL MPV 8.0 Neutrophils % (Manual) 33 % Band Neuts % (Manual) 2 % Lymphocytes % (Manual) 61 % Monocytes % (Manual) 3 % Eosinophils % (Manual) 1 % Neutrophils # (Manual) 4.60 (1.3-7.7) k/uL Lymphocytes # (Manual) 8.17 H (1.0-4.8) k/uL Monocytes # (Manual) 0.40 (0-1.0) k/uL Eosinophils # (Manual) 0.13 (0-0.7) k/uL Nucleated RBCs 0 (0-0) /100 WBC Manual Slide Review Performed Sodium 136 L (137-145) mmol/L Potassium 5.0 (3.5-5.1) mmol/L Chloride 104 (98-107) mmol/L Carbon Dioxide 23 (22-30) mmol/L Anion Gap 9 mmol/L BUN 21 H (7-17) mg/dL Creatinine 0.91 (0.52-1.04) mg/dL Est GFR (CKD-EPI)AfAm 72 (>60 ml/min/1.73 sqM) Est GFR (CKD-EPI)NonAf 62 (>60 ml/min/1.73 sqM) Glucose 228 H (74-99) mg/dL Calcium 9.1 (8.4-10.2) mg/dL Disposition Clinical Impression: Epistaxis Disposition: HOME SELF-CARE Condition: Good Instructions (If sedation given, give patient instructions): Nosebleed (ED) Is patient prescribed a controlled substance at d/c from ED?: No Referrals: Musa Louis MD [Primary Care Provider] - 1-2 days
[2021-09-09 02:44] LABS: Calcium 9.1 mg/dL (8.4-10.2)
[2021-09-09 03:01] LABS: Band Neutrophils % 2 %; Eosinophils # (M) 0.13 k/uL (0-0.7); Lymphocytes # (M) 8.17 k/uL (1.0-4.8); Neutrophils % (M) 33 %; Nucleated Red Blood Cells 0 /100 WBC (0-0); Total Cells Counted 100
[2021-09-09 03:23] VITALS: RESP 18
[2021-09-09 05:03] VITALS: BP 153/74; PULSE 81
== END 2021-09-09 04:38 | disposition home or self-care (01) ==
LOC: EC 01:15
DX: R04.0 Epistaxis (principal); I10 Essential (primary) hypertension; Z87.891 Personal history of nicotine dependence; Z79.84 Long term (current) use of oral hypoglycemic drugs; Z79.82 Long term (current) use of aspirin; Z79.899 Other long term (current) drug therapy
CPT/HCPCS: 36415; 80048; 85025; 96365; 99283

== ENCOUNTER 2021-10-17 13:29 | Emergency (ER) | payer OTHER, MEDICARE ==
[2021-10-17 14:29] VITALS: BP 126/72; PULSE 63; RESP 20; TEMP 97.6
[2021-10-17] MEDS ORDERED: OXYMETAZOLINE 0.05% NASL SPRAY 1 SPRAY BOTTLE NASAL STA (15:29)
--- NOTE | 2021-10-17 16:13 | ED ---
ENT HPI - General Chief complaint: ENT Stated complaint: epistaxis Time Seen by Provider: 10/17/21 15:20 Source: patient Mode of arrival: wheelchair Limitations: no limitations - History of Present Illness Initial comments: She has a 76-year-old female presenting with chief complaint of epistaxis. Past Medical history of hypertension and diabetes. Bleeding began a few hours prior to presentation. Patient was able to mostly control bleeding with a nose clamp and tissues at home. Patient is stating initially blood was coming from both nostrils and she could feel it going down the back of her throat. Patient states that sensation of blood down the back of the throat has greatly improved and she is only occasionally spitting up light pink blood from the back of her throat. Patient denies lightheadedness, headache, dizziness, chest pain, shortness of breath, diaphoresis, vision or hearing changes, fever, chills, nausea, vomiting. - Related Data Home Medications Medication Instructions Recorded Confirmed Atorvastatin [Lipitor] 40 mg PO DAILY 08/09/20 10/17/21 Citalopram Hydrobromide 20 mg PO DAILY 08/09/20 10/17/21 [Citalopram HBr] Folic Acid 1 mg PO DAILY 08/09/20 10/17/21 Omeprazole 20 mg PO DAILY 08/09/20 10/17/21 Thyroid,Pork [[place] Thyroid] 60 mg PO DAILY 08/09/20 10/17/21 amLODIPine [Norvasc] 5 mg PO DAILY 08/09/20 10/17/21 metFORMIN HCL 500 mg PO HS 08/09/20 10/17/21 Apixaban [Eliquis] 5 mg PO BID 10/17/21 10/17/21 Ciprofloxacin HCl [Cipro] 250 mg PO BID 10/17/21 10/17/21 Gabapentin [Neurontin] 300 mg PO DAILY PRN 10/17/21 10/17/21 Ibuprofen [Advil] 400 mg PO Q8HR PRN 10/17/21 10/17/21 Losartan Potassium 100 mg PO DAILY 10/17/21 10/17/21 Metoprolol Tartrate [Lopressor] 100 mg PO BID 10/17/21 10/17/21 Promethazine 6.25MG/5Ml [Phenergan 6.25 mg PO Q8H PRN 10/17/21 10/17/21 Syrup] Allergies Allergy/AdvReac Type Severity Reaction Status Date / Time Sulfa (Sulfonamide Allergy Unknown Verified 10/17/21 17:09 Antibiotics) sulfamethoxazole Allergy Unknown Verified 10/17/21 17:09 [From Bactrim] trimethoprim [From Bactrim] Allergy Unknown Verified 10/17/21 17:09 Review of Systems ROS Statement: Those systems with pertinent positive or pertinent negative responses have been documented in the HPI. ROS Other: All systems not noted in ROS Statement are negative. Past Medical History Past Medical History: Hypertension Additional Past Medical History / Comment(s): leaky aorta, DVT History of Any Multi-Drug Resistant Organisms: None Reported Past Surgical History: Appendectomy, Cholecystectomy Additional Past Surgical History / Comment(s): aortic dissection, fem bypass left leg, carpal tunel right, eye lid surgery, cataract, Past Psychological History: No Psychological Hx Reported, Depression Smoking Status: Former smoker Past Alcohol Use History: None Reported Past Drug Use History: None Reported General Exam Limitations: no limitations General appearance: alert, in no apparent distress Head exam: Present: atraumatic, normocephalic, normal inspection Eye exam: Present: normal appearance, PERRL, EOMI. Absent: scleral icterus, conjunctival injection, periorbital swelling ENT exam: Present: mucous membranes moist, other (She initially presented with noseclip and tissues in the bilateral nares. When removed there is dried blood in the bilateral nares) Neck exam: Present: normal inspection Neurological exam: Present: alert, oriented X3, CN II-XII intact Psychiatric exam: Present: normal affect, normal mood Skin exam: Present: warm, dry, intact, normal color. Absent: rash Course Vital Signs 10/17/21 14:27 Temperature 97.6 F Pulse Rate 63 Respiratory 20 Rate Blood Pressure 126/72 O2 Sat by Pulse 98 Oximetry - Reevaluation(s) Reevaluation #1: Transferred in each nostril and nose clamp with manual pressure applied for 20 minutes 10/17/21 17:10 Medical Decision Making - Medical Decision Making Patient is a 76-year-old female presenting with chief complaint of epistaxis. Initial nosebleed began around noon today which was several hours prior to presentation. Patient has a history of nosebleeds and is on Plavix. She stated blood was coming out of both nares and she was swallowing blood. She was seen here and 2/5/22 for the same complaint, it was stopped with cautery and Afrin. Patient presented with noseclip and tissues in the bilateral nares stating that she had gotten the bleeding to stop. When noseclip and tissues were removed Afrin was applied to both nares and pressure was applied for about 40 minutes total. Inspection of the nose with an otoscope showed no site of bleeding. Patient was still able to produce blood mixed with mucus by coughing. Patient was given water and it was ensured that this was blood from before the epistaxis was controlled. Patient was monitored for approximately 15 minutes. No blood was seen coming out of the nares or felt running down the back of the throat. Patient was advised to use Afrin per package instructions if needed in future events. Report back to ER with worsening symptoms or new onset alarming symptoms. I gave the patient strict return parameters. Answered all questions. Patient conveyed verbal understanding and agreed to the plan. My attending was Dr. Galindo. Disposition Clinical Impression: Epistaxis Disposition: HOME SELF-CARE Condition: Good Instructions (If sedation given, give patient instructions): Nosebleed (ED) Additional Instructions: Follow up with primary care in 1-2 days. May use over the counter Afrin spray as needed per package instructions. Report back to ER with worsening symptoms or new onset alarm symptoms. Is patient prescribed a controlled substance at d/c from ED?: No Referrals: Musa Louis MD [Primary Care Provider] - 1-2 days Time of Disposition: 18:14
== END 2021-10-17 18:29 | disposition home or self-care (01) ==
LOC: EC 13:29
DX: R04.0 Epistaxis (principal); I10 Essential (primary) hypertension; Z79.84 Long term (current) use of oral hypoglycemic drugs; Z79.01 Long term (current) use of anticoagulants; Z88.1 Allergy status to other antibiotic agents; Z88.2 Allergy status to sulfonamides; Z90.49 Acquired absence of other specified parts of digestive tract; Z87.891 Personal history of nicotine dependence
CPT/HCPCS: 99283

== ENCOUNTER → 2021-11-03 | Outpatient (CLI) | payer OTHER, MEDICARE ==
--- NOTE | 2021-11-03 10:04 | CT ---
EXAMINATION TYPE: CT soft tissue neck w con DATE OF EXAM: 11/03/2021 9:43 AM COMPARISON: None available HISTORY: Rt neck mass CT DLP: 403.40 mGycm Automated exposure control for dose reduction was used. CONTRAST: CT scan of the neck is performed following with IV Contrast, patient injected with 100 mL of Isovue 3 00. Axial images are obtained, coronal and sagittal reformatted images are reviewed. FINDINGS: A marker was placed at the area of interest. There is indeed a well-defined solid lesion within the r ight parotid gland extending to its the portion measuring 18 x 25 x 18 mm without definite cystic com ponent or calcification within. More superiorly, another well-defined more hypodense probably cystic lesion is seen inseparable from the above-described lesion measuring 22 x 32 x 15 mm without calcific ation or septation within. Smaller similar hypodense bilobed lesion is seen at the most deep portion of the left parotid gland m easuring 10 x 14 x 20 mm and extending between the left digastric muscle and the left sternocleidomas toid muscle which could represent a primary parotid gland lesion versus a hypodense lymph node. Symmetrical unremarkable submandibular salivary glands. Small thyroid gland, please correlate with th yroid function tests. Unremarkable nasopharynx, oropharynx hypopharynx, larynx and visualized portion of the trachea and esophagus. No pathologically enlarged lymph nodes in the neck. Chronic dissection of the aortic arch. Scattered arterial atherosclerotic calcification. Patent major neck vessels. 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 Sternotomy wire sutures. Previous right mastoidectomy. Degenerative changes of the cervical spine. IMPRESSION: Right parotid gland colloid lesion versus 2 adjacent lesions with a smaller left parotid gland lesion as described above. They could represent primary parotid lesions likely Warthin tumor or pleomorphic adenoma however lymphadenopathy cannot be excluded. Recommend correlation with ultrasound and PET sc an results. Accordingly, tissue diagnosis can be considered. Other findings as described above.
== END | disposition home or self-care (01) ==
LOC: RADCTMAIN 08:01
PROVIDERS: ATTEND Family Medicine
DX: D11.0 Benign neoplasm of parotid gland (principal)
CPT/HCPCS: 82565; 84520; 70491; 36415; Q9967

== ENCOUNTER → 2021-11-21 | Outpatient (CLI) | payer OTHER, MEDICARE ==
--- NOTE | 2021-11-21 16:00 | US ---
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 Lump right neck parotid area. Anechoic area right neck parotid area measuring 4.6 x 1.8 x 3.3 cm.. Left neck was limited CT scan for comparison. Abnormality identified on the CT examination deep to th e parotid gland is not evident on this study. IMPRESSION: 1. Large cystic area within the right parotid region. Differential diagnosis could include but not li mited to salivary cyst, Salivary neoplasm, brachial cleft cysts, hematoma.
== END | disposition home or self-care (01) ==
LOC: RADUSWWP 14:58
PROVIDERS: ATTEND Family Medicine
DX: D11.0 Benign neoplasm of parotid gland (principal)
CPT/HCPCS: 76536

== ENCOUNTER 2021-12-18 08:59 | Day surgery (SDC) | payer OTHER, MEDICARE ==
[2021-12-18 09:34] VITALS: RESP 16; TEMP 98.3
[2021-12-18 09:44] LABS: Glucose,Whole Blood 204 mg/dL (75-99)
--- NOTE | 2021-12-18 11:06 | US ---
ULTRASOUND GUIDED FNA RIGHT PAROTID MASS BIOPSY: CLINICAL HISTORY: Right parotid mass FINDINGS: The procedure was explained to the patient. The risks, complications, benefits and alternatives were discussed and any questions were answered. Informed consent was obtained. Patient was placed supin e on the ultrasound table and prepped and draped in the usual sterile fashion. Utilizing a 18-gauge needle access into the cystic lesion was obtained and there is aspiration of 10 cc of serous fluid. Patient was stable throughout the procedure. Pathology is pending. All elements of maximal barrier technique were utilized. IMPRESSION: 1. Successful ultrasound guided FNA cystic right parotid mass.
[2021-12-18 11:42] VITALS: BP 154/83; PULSE 69
--- NOTE | 2021-12-18 11:57 | CT ---
EXAMINATION TYPE: CT biopsy subcut tissue DATE OF EXAM: 12/18/2021 COMPARISON: 11/03/2021 HISTORY: Right parotid mass CT DLP: 1403 mGycm The procedure is discussed with the patient, the risks, complications, benefits and alternatives, wer e discussed and any questions were answered. Informed consent was obtained. The patient is placed p minna on the CT table, prepped and draped in the usual sterile fashion. Utilizing a 18-gauge core biopsy needle access into the right parotid mass mass was achieved with 2 s amples obtained. Pathology pending. All elements of maximal barrier technique were utilized. The p atient remained stable throughout the procedure with no immediate postprocedural complication. IMPRESSION: 1. Successful CT guided core biopsy right parotid mass
== END 2021-12-18 12:01 | disposition home or self-care (01) ==
LOC: RADPROMAIN 08:59
PROVIDERS: ATTEND Family Medicine
DX: D11.0 Benign neoplasm of parotid gland (principal)
CPT/HCPCS: 10005; 42400; 77012; 88173; 88305

== ENCOUNTER → 2022-07-20 | Outpatient (CLI) | payer OTHER, MEDICARE ==
--- NOTE | 2022-07-20 15:39 | US ---
EXAMINATION TYPE: US carotid duplex BILAT DATE OF EXAM: 07/20/2022 COMPARISON: Carotid ultrasound 2015. CT neck November 03, 2021 CLINICAL HISTORY: I77.9 CAROTID ARTERY DISEASE. TECHNIQUE: Carotid duplex ultrasound examination. Indirect Doppler criteria was utilized. FINDINGS: EXAM MEASUREMENTS: RIGHT: Peak Systolic Velocity (PSV) cm/sec ----- Right CCA: 90.3 ----- Right ICA: 82.5 ----- Right ECA: 151 ICA/CCA ratio: 0.91 RIGHT: End Diastole cm/sec ----- Right CCA: 14.3 ----- Right ICA: 23.4 ----- Right ECA: 0.0 LEFT: Peak Systolic Velocity (PSV) cm/sec ----- Left CCA: 99.2 ----- Left ICA: 91.0 ----- Left ECA: 129 ICA/CCA ratio: 0.92 LEFT: End Diastole cm/sec ----- Left CCA: 19.7 ----- Left ICA: 26.2 ----- Left ECA: 0.0 VERTEBRALS (direction of flow): Right Vertebral: unable to visualize Left Vertebral: unable to visualize Rhythm: Normal INSTRUMENTATION TECH NOTES: Mild to moderate plaque bilateral bifurcations. No evidence of significant stenosi s IMPRESSION: No hemodynamically significant stenosis in either internal carotid artery. Note is made despite nonvisualization of bilateral vertebral arteries today they appear patent to the basilar junc tion on CT with contrast November 03, 2021. Criteria for Assigning % of Stenosis / Diameter reduction (Estimation based on the indirect measurements of the internal carotid artery velocities (ICA PSV). 1. Normal (no stenosis)=ICA PSV < 125 cm/s: ratio < 2.0: ICA EDV<40 cm/s. 2. Less than 50% stenosis=ICA PSV < 125 cm/s: ratio < 2.0: ICA EDV<40 cm/s. 3. 50 to 69% stenosis=ICA PSV of 125 to 230 cm/s: ration 2.0 ? 4.0: ICA EDV 40-100 cm/s. 4. Greater than 70% stenosis to near occlusion= ICA PSV > 230 cm/s: ratio > 4.0: ICA EDV > 100 cm/s. 5. Near occlusion= ICA PSV velocities may be low or undetectable: variable ratio and ICA EDV. 6. Total occlusion=unable to detect flow.
--- NOTE | 2022-07-24 10:23 | US ---
EXAMINATION TYPE: US arterial LE single level DATE OF EXAM: 07/20/2022 2:53 PM CLINICAL HISTORY: I73.9 PERIPHERAL VASCULAR DISEASE, UNSPECIFI. History of aortic dissection, PAD, pa in bilateral legs worse on the right. unable to do left brachial pressure, per patient, history of [facility] . History of hyperlipidemia and diabetes. Doppler Waveforms: Right: Biphasic Left: Biphasic Ankle-Brachial Indices: Right: 1.07 Left: unable to obtain pressures at left PT and DP due to pain, patient unable to tolerate Toe Brachial Indices: Right: 0.81 Left: 0.72 IMPRESSION: Normal RUPERTO and TBI values.
== END | disposition home or self-care (01) ==
LOC: RADUSWWP 13:43
PROVIDERS: ATTEND Family Medicine
DX: I73.9 Peripheral vascular disease, unspecified (principal); I77.9 Disorder of arteries and arterioles, unspecified
CPT/HCPCS: 93880; 93922

== ENCOUNTER → 2022-07-24 | Outpatient (CLI) | payer OTHER, MEDICARE ==
--- NOTE | 2022-07-24 09:19 | USB ---
Reason for Exam: Clinical finding. Patient History: Menarche at age 11. First Full-Term at age 24. Postmenopausal. Risk Values: Yue 5 year model risk: 1.7%. NCI Lifetime model risk: 3.8%. Technique: Method: Whole Breast Handheld. Prior Study Comparison: 01/07/2008 Bilateral Screening Mammogram, [facility]. 03/23/2008 Right Diagnostic Mammogram, [facility]. 01/18/2012 Bilateral Screening Mammogram, [facility]. Findings: The whole breast of both breasts, the axilla of both breasts and the retroareolar of both breasts were scanned. A complete US of all four quadrants of the breast and retro-areolar region were reviewed. No solid or cystic masses are identified.. Overall Assessment: Negative, BI-RAD 1 Management: Screening Mammogram of both breasts in 1 year. A clinical breast exam by your physician is recommended on an annual basis and results should be correlated with mammographic findings. This exam should not preclude additional follow-up of suspicious palpable abnormalities. Results were given to the patient verbally at the time of exam. Electronically signed and approved by: Trever Collier D.O.
== END | disposition home or self-care (01) ==
LOC: RADMAMWWP 07:56
PROVIDERS: ATTEND Family Medicine
DX: N64.4 Mastodynia (principal); Z78.0 Asymptomatic menopausal state

== ENCOUNTER → 2022-11-28 | Outpatient (CLI) | payer OTHER, MEDICARE ==
--- NOTE | 2022-11-28 11:52 | P.PN ---
Subjective DATE: 11/28/2022 FOLLOW UP VISIT. Patient with obstructive sleep apnea hypopnea syndrome return to sleep center for follow-up visit. Information from previous visit have been reviewed. Recently patient had BiPAP titration. I explained results of the sleep study to the patient in details. During titration respiration normalized and oxygen level was normal on the therapeutic level of pressure. Patient is using BPAP equipment every night for the whole night, getting BPAP supplies in time. The patient does not have significant problems with the mask, BPAP unit and humidification. [place] sleepiness scale is 3, which is normal. I checked information from PAP unit. BPAP ST mode unit pressure 18/14 cm H2O, respiratory rate support 12. Usage is 100 % for more then 4 hours, average 7.5 hours per night. Leak is 18 l/m, which is in acceptable range. Apnea Hypopnea Index is 6.1, which is close to normal. MEDICATIONS:1. Eliquis 5 mg twice a day 2. Metoprolol 100 mg once a day 3. Atorvastatin 40 mg once a day 4. Omeprazole 20 mg once a day 5. Losartan 100 mg once a day 6. Metformin 500 mg once a day 7. Gabapentin 300 mg 8. Amlodipine 5 mg once a day During physical exam: GENERAL: A pleasant patient without any distress. VITAL SIGNS: BP 178/80, HR 59, RR 12, weight 189, temperature 98.1, oxygen saturation at room air 97 % . HEENT: PERRLA, EOMI.low position of soft palate, Mallapati 4 . NECK: Supple. No JVD. LUNGS: Clear to percussion and to auscultation. Good air exchange. No wheezing or rhonchi. HEART: S1, S2 regular. ABDOMEN: Soft and nontender. Obese EXTREMITIES: No clubbing or cyanosis. BICYCLE I ASSEMBLER: Awake, alert, and oriented x3. No focal deficit. Impressions: 1. Obstructive sleep apnea-hypopnea syndrome. Patient demonstrated great compliance with treatment, benefiting from treatment. 2. Obesity body mass index 38.6. 3. History of stroke. 4. Hypertension. 5. History of DVT of left leg. 6. Acid reflux. 7. Hyperlipidemia. 8. History of rectal bleed in the past. Plan: 1. Continue using BPAP ST equipment every night for the whole night. 2. To change air filter at least 1-2 times per month. 3. BPAP unit should stay lower then position of the head. 4. Advised patient to remove all remaining water from humidifier canister daily and make it dry after each usage. Refill canister with fresh distilled water before each usage. 5. Sleep hygiene with regular time in bed for at least 8 hours. 6. Precautions related to driving. No driving if feel any sleepiness. 7. I will maintain prescription for PAP supplies including mask, tube, filters. 8. Watching and losing weight. 9. Follow up visit in 6 months or earlier if patient has any problems. Thank you very much for allowing me to participate in the management of your patient. Eliud Lara MD, PhD, FAASM. Diplomat of [employer], Sleep Medicine Board by [employer] Opener of [facility] [place]
== END ==
LOC: SLEEP 11:27
PROVIDERS: ATTEND Internal Medicine
DX: G47.33 Obstructive sleep apnea (adult) (pediatric) (principal); Z79.899 Other long term (current) drug therapy; Z79.84 Long term (current) use of oral hypoglycemic drugs; Z79.01 Long term (current) use of anticoagulants; E66.9 Obesity, unspecified; Z68.38 Body mass index [BMI] 38.0-38.9, adult; Z86.73 Personal history of transient ischemic attack (TIA), and cerebral infarction without residual deficits; I10 Essential (primary) hypertension; Z86.718 Personal history of other venous thrombosis and embolism; K21.9 Gastro-esophageal reflux disease without esophagitis; E78.5 Hyperlipidemia, unspecified; R63.4 Abnormal weight loss; Z99.89 Dependence on other enabling machines and devices; Z88.2 Allergy status to sulfonamides
CPT/HCPCS: 99212

== ENCOUNTER → 2023-01-15 | Outpatient (CLI) | payer MEDICARE, OTHER ==
--- NOTE | 2023-01-15 15:09 | XR ---
EXAMINATION TYPE: XR thoracic spine 2V, XR lumbar spine 2 or 3V DATE OF EXAM: 01/15/2023 1:41 PM INDICATION: Patient age:Female; 77 years old; Reason for study: M54.16 M54.14; [facility]. COMPARISON: CTA thoracoabdominal aorta 11/17/2013 TECHNIQUE: Frontal and lateral views of the thoracolumbar spine were obtained. FINDINGS: Midline sternotomy wires. S-shaped scoliotic curvature of the thoracic lumbar spine. No katie dence of acute fracture. No evidence of loss of vertebral body height is seen. Normal alignment of th e vertebral bodies. Multilevel degenerative disc disease with disc space narrowing, endplate sclerosi s, and anterior osteophytosis. Multilevel lower lumbar spine facet arthropathy. Surgical clips in the right axilla. Mildly enlarged heart. The visualized lungs are clear. Surgical c lips at the GE junction. Cholecystectomy clips in right upper quadrant. IMPRESSION: 1. No acute process. 2. S-shaped thoracolumbar spine scoliotic curvature with mild multilevel degenerative disc disease.
== END | disposition home or self-care (01) ==
LOC: RADXRMAIN 12:47
PROVIDERS: ATTEND Family Medicine
DX: M51.15 Intervertebral disc disorders with radiculopathy, thoracolumbar region (principal)
CPT/HCPCS: 72070; 72100

== ENCOUNTER → 2023-06-12 | Outpatient (CLI) | payer MEDICARE, OTHER ==
--- NOTE | 2023-06-12 12:16 | P.PN ---
Subjective DATE: 06/12/2023 FOLLOW UP VISIT. Patient with obstructive sleep apnea hypopnea syndrome return to sleep center for follow-up visit. Information from previous visit have been reviewed. Patient is using PAP equipment every night for the whole night. The patient does not have significant problems with the mask, PAP unit and humidification. [place] sleepiness scale is 1, which is perfect. I checked information from PAP unit. BPAP ST mode unit pressure 18/14. The respiratory rate 12 cm H2O. Usage is 97% and 93 % for more then 4 hours, average 7.3 hours per night. Leak is 13.2 l/m, which is in acceptable range. Apnea Hypopnea Index is slightly increased to 9.6, during previous visit with the same pressure it was 6.1. Patient sleeps well and feel comfortable with the pressure. MEDICATIONS:1 Eliquis 5 mg twice a day. 2. Metoprolol 100 mg twice a day 3. Thyroid armour 4. Omeprazole 20 mg once a day 5. Citalopram 20 mg once a day 6. Atorvastatin 40 mg once a day 7. Amlodipine 5 mg once a day 8. Metformin 500 mg once a day During physical exam: GENERAL: A pleasant patient without any distress. VITAL SIGNS: BP 163/81, HR 71, RR 16 , weight 183, temperature 98.3, oxygen saturation at room air 96 % . HEENT: PERRLA, EOMI.low position of soft palate, Mallapati 4. NECK: Supple. No JVD. LUNGS: Clear to percussion and to auscultation. Good air exchange. No wheezing or rhonchi. HEART: S1, S2 regular. ABDOMEN: Soft and nontender. Slightly obese. EXTREMITIES: No clubbing or cyanosis. LANDING WORKER: Awake, alert, and oriented x3. No focal deficit. Impressions: 1. Obstructive sleep apnea-hypopnea syndrome. Patient demonstrated great compliance with treatment, benefiting from treatment. 2. History of stroke . 3. Hypertension . 4. History of left leg DVT . 5. Hyperlipidemia . 6. Acid reflux . 7. Obesity . Plan: 1. Continue using PAP equipment every night for the whole night. 2. To change air filter at least 1-2 times per month. 3. PAP unit should stay lower then position of the head. 4. Advised patient to remove all remaining water from humidifier canister daily and make it dry after each usage. Refill canister with fresh distilled water before each usage. 5. Sleep hygiene with regular time in bed for at least 8 hours. 6. Precautions related to driving. No driving if feel any sleepiness. 7. I will maintain prescription for PAP supplies including mask, tube, filters. 8. Follow up visit in 6 months or earlier if patient has any problems. 9. Watching and losing weight. Thank you very much for allowing me to participate in the management of your patient. Eliud Lara MD, PhD, FAASM. Diplomat of [place] [employer], Sleep Medicine Board by [employer] A And P Technician of [facility] [place]
== END ==
LOC: 3 N SLEEP 11:27
PROVIDERS: ATTEND Internal Medicine
DX: G47.33 Obstructive sleep apnea (adult) (pediatric) (principal); I10 Essential (primary) hypertension; E66.9 Obesity, unspecified; E78.5 Hyperlipidemia, unspecified; K21.9 Gastro-esophageal reflux disease without esophagitis; Z86.718 Personal history of other venous thrombosis and embolism; Z86.73 Personal history of transient ischemic attack (TIA), and cerebral infarction without residual deficits; Z79.899 Other long term (current) drug therapy; Z79.01 Long term (current) use of anticoagulants; Z99.89 Dependence on other enabling machines and devices; Z88.2 Allergy status to sulfonamides; Z88.1 Allergy status to other antibiotic agents
CPT/HCPCS: 99212

== ENCOUNTER → 2024-01-08 | Outpatient (CLI) | payer MEDICARE, OTHER ==
[2024-01-08 10:59] VITALS: BP 149/82; PULSE 68; RESP 16; TEMP 98.3
--- NOTE | 2024-01-08 11:13 | P.PROGSL ---
Subjective DATE: 01/08/2024 FOLLOW UP VISIT. Patient with obstructive sleep apnea hypopnea syndrome return to sleep center for follow-up visit. Information from previous visit have been reviewed. Patient is using PAP equipment every night for the whole night, getting BPAP supplies in time. The patient does not have significant problems with the mask, BPAP unit and humidification. [place] sleepiness scale is 4, which is normal. I checked information from BPAP unit. BPAP ST mode unit pressure 18/14 cm H2O with respiratory rate 12. Usage is 97% for more then 4 hours, average 9.5 hours per night. Leak is 13.2 l/m, which is in acceptable range. Apnea Hypopnea Index is 10.3, which is increased. MEDICATIONS: Please see below During physical exam: GENERAL: A pleasant patient without any distress on wheelchair. VITAL SIGNS: Please see below. HEENT: PERRLA, EOMI.low position of soft palate, Mallapati 4 . NECK: Supple. No JVD. LUNGS: Clear to percussion and to auscultation. Good air exchange. No wheezing or rhonchi. HEART: S1, S2 regular. ABDOMEN: Soft and nontender. Obese EXTREMITIES: No clubbing or cyanosis. DIRECTOR HAIR: Awake, alert, and oriented x3. No focal deficit. Impressions: 1. Obstructive sleep apnea-hypopnea syndrome. Patient demonstrated great compliance with treatment, benefiting from treatment. Apnea hypopnea index reading increased to 10.3. 2. Hypertension. 3. History of stroke. 4. Obesity. 5. History of left leg DVT. 6. Hyperlipidemia. 7. Acid reflux. Plan: 1. Continue using PAP equipment every night for the whole night. I increased pressure in BiPAP ST mode unit to 19/ 15 cm of water. 2. To change air filter at least 1-2 times per month. 3. PAP unit should stay lower then position of the head. 4. Advised patient to remove all remaining water from humidifier canister daily and make it dry after each usage. Refill canister with fresh distilled water before each usage. 5. Sleep hygiene with regular time in bed for at least 8 hours. 6. Precautions related to driving. No driving if feel any sleepiness. 7. I will maintain prescription for PAP supplies including mask, tube, filters. 8. Follow up visit in 6 months or earlier if patient has any problems. 9. Watching and losing weight. Thank you very much for allowing me to participate in the management of your patient. Eliud Lara MD, PhD, FAASM. Diplomat of [place] [employer], Sleep Medicine Board by [place] [employer] [facility]rimper of [facility] [place] Objective - Vital Signs Vital Signs: Vital Signs Temp 98.3 F 01/08/24 10:58 Pulse 68 01/08/24 10:58 Resp 16 01/08/24 10:58 BP 149/82 01/08/24 10:58 Pulse Ox 96 01/08/24 10:58 FiO2 Home Medications: Home Medications Medication Instructions Recorded Confirmed Type Atorvastatin [Lipitor] 40 mg PO DAILY 08/09/20 01/08/24 History Citalopram Hydrobromide 20 mg PO DAILY 08/09/20 01/08/24 History [Citalopram HBr] Folic Acid 1 mg PO DAILY 08/09/20 01/08/24 History Omeprazole 20 mg PO DAILY 08/09/20 01/08/24 History Thyroid,Pork [[place] Thyroid] 60 mg PO DAILY 08/09/20 01/08/24 History metFORMIN HCL 500 mg PO HS 08/09/20 01/08/24 History Apixaban [Eliquis] 5 mg PO BID 10/17/21 01/08/24 History Gabapentin [Neurontin] 300 mg PO DAILY PRN 10/17/21 01/08/24 History Losartan Potassium 100 mg PO DAILY 10/17/21 01/08/24 History Metoprolol Tartrate [Lopressor] 100 mg PO BID 10/17/21 01/08/24 History Promethazine 6.25MG/5Ml [Phenergan 6.25 mg PO Q8H PRN 10/17/21 12/12/21 History Syrup] Docusate [Colace] 100 mg PO DAILY 12/12/21 12/12/21 History Ergocalciferol [Vitamin D2 (1250 1,250 mcg PO WEEKLY 12/12/21 01/08/24 History Mcg = [id number] Iu)] Meclizine [Antivert] 12.5 mg PO DAILY 12/12/21 12/12/21 History Mirabegron [Myrbetriq] 25 mg PO DAILY 12/12/21 01/08/24 History Montelukast [Singulair] 10 mg PO DAILY 01/08/24 01/08/24 History
== END ==
LOC: 3 N SLEEP 10:40
PROVIDERS: ATTEND Internal Medicine
DX: G47.33 Obstructive sleep apnea (adult) (pediatric) (principal); I10 Essential (primary) hypertension; E66.9 Obesity, unspecified; E78.5 Hyperlipidemia, unspecified; K21.9 Gastro-esophageal reflux disease without esophagitis; Z99.89 Dependence on other enabling machines and devices; Z86.718 Personal history of other venous thrombosis and embolism; Z86.73 Personal history of transient ischemic attack (TIA), and cerebral infarction without residual deficits; Z88.2 Allergy status to sulfonamides; Z88.1 Allergy status to other antibiotic agents; Z79.01 Long term (current) use of anticoagulants; Z79.899 Other long term (current) drug therapy
CPT/HCPCS: 99212

== ENCOUNTER 2024-09-27 13:22 | Emergency (ER) | payer OTHER, MEDICARE ==
--- NOTE | 2024-09-27 13:48 | ED ---
Lower Extremity Injury HPI - General Chief Complaint: Extremity Problem,Nontraumatic Stated Complaint: hip pain Time Seen by Provider: 09/27/24 13:46 Source: patient, family, RN notes reviewed Mode of arrival: ambulatory Limitations: no limitations - History of Present Illness Initial Comments: 79-year-old female presented to the ER for evaluation of right hip pain. Patient reports for the past 3 days she has been having a sharp achy pain to her right posterior hip. She does state pain will radiate down her leg. She denies any injuries or traumas. She reports she has tried IcyHot, massage, icing and [id number] medications without relief. Patient states she is able to ambulate with difficulty. No back pain. No paresthesias. No other complaints at this time. - Related Data Home Medications Medication Instructions Recorded Confirmed Atorvastatin [Lipitor] 40 mg PO DAILY 08/09/20 09/09/24 Citalopram Hydrobromide 20 mg PO DAILY 08/09/20 09/09/24 [Citalopram HBr] Folic Acid 1 mg PO DAILY 08/09/20 09/09/24 Omeprazole 20 mg PO DAILY 08/09/20 09/09/24 Thyroid,Pork [[place] Thyroid] 60 mg PO DAILY 08/09/20 09/09/24 metFORMIN HCL 500 mg PO HS 08/09/20 09/09/24 Apixaban [Eliquis] 5 mg PO BID 10/17/21 09/09/24 Gabapentin [Neurontin] 600 mg PO DAILY PRN 10/17/21 09/09/24 Losartan Potassium 100 mg PO DAILY 10/17/21 09/09/24 Metoprolol Tartrate [Lopressor] 100 mg PO BID 10/17/21 09/09/24 Promethazine 6.25MG/5Ml [Phenergan 6.25 mg PO Q8H PRN 10/17/21 07/27/24 Syrup] Docusate [Colace] 100 mg PO DAILY 12/12/21 07/27/24 Ergocalciferol [Vitamin D2 (1250 1,250 mcg PO WEEKLY 12/12/21 07/27/24 Mcg = 86178 Iu)] Meclizine [Antivert] 12.5 mg PO DAILY 12/12/21 09/09/24 Mirabegron [Myrbetriq] 25 mg PO DAILY 12/12/21 07/27/24 Montelukast [Singulair] 10 mg PO DAILY 01/08/24 07/27/24 Repaglinide [Prandin] 0.5 mg PO ONCE 09/09/24 09/09/24 Previous Rx's Medication Instructions Recorded predniSONE 50 mg PO DAILY #5 tab 09/27/24 Allergies Allergy/AdvReac Type Severity Reaction Status Date / Time Sulfa (Sulfonamide Allergy Unknown Verified 09/27/24 13:30 Antibiotics) sulfamethoxazole Allergy Unknown Verified 09/27/24 13:30 [From Bactrim] trimethoprim [From Bactrim] Allergy Unknown Verified 09/27/24 13:30 Review of Systems ROS Statement: Those systems with pertinent positive or pertinent negative responses have been documented in the HPI. ROS Other: All systems not noted in ROS Statement are negative. Past Medical History Past Medical History: Diabetes Mellitus, Hypertension Additional Past Medical History / Comment(s): leaky aorta, DVT History of Any Multi-Drug Resistant Organisms: None Reported Past Surgical History: Appendectomy, Section, Cholecystectomy, Hernia Repair Additional Past Surgical History / Comment(s): aortic dissection, fem-fem bypass left leg, carpal tunel right, eye lid surgery, cataract, cyst removed from right hand, paroitd mass Past Anesthesia/Blood Transfusion Reactions: No Reported Reaction Past Psychological History: No Psychological Hx Reported, Depression Smoking Status: Never smoker Past Alcohol Use History: None Reported Past Drug Use History: None Reported General Exam Limitations: no limitations General appearance: alert, in no apparent distress Respiratory exam: Present: normal lung sounds bilaterally. Absent: respiratory distress, wheezes, rales, rhonchi, stridor Cardiovascular Exam: Present: regular rate, normal rhythm, normal heart sounds. Absent: systolic murmur, diastolic murmur, rubs, gallop, clicks Extremities exam: Present: normal inspection, full ROM, tenderness (with femur external rotation), normal capillary refill (2+ DP pulse) Back exam: Present: normal inspection Neurological exam: Present: alert, oriented X3, CN II-XII intact Skin exam: Present: warm, dry, intact, normal color. Absent: rash Course Vital Signs 09/27/24 09/27/24 13:25 14:48 Temperature 97.8 F 97.6 F Pulse Rate 66 60 Respiratory 20 16 Rate Blood Pressure 170/85 169/84 O2 Sat by Pulse 94 L 96 Oximetry Medical Decision Making - Medical Decision Making Was pt. sent in by a medical professional or institution (TONYA Segal, DEBURRING MACHINE OPERATOR, urgent care, hospital, or care home...) When possible be specific @ -No Did you speak to anyone other than the patient for history (EMS, parent, family, police, friend...)? What history was obtained from this source @ -Significant other, at bedside, aiding in HPI and past medical history. Did you review nursing and triage notes (agree or disagree)? Why? @ -I reviewed and agree with nursing and triage notes Were old charts reviewed (outside hosp., previous admission, EMS record, old EKG, old radiological studies, urgent care reports/EKG's, care home records)? Report findings @ -No old charts were reviewed Differential Diagnosis (chest pain, altered mental status, abdominal pain women, abdominal pain men, vaginal bleeding, weakness, fever, dyspnea, syncope, headache, dizziness, GI bleed, back pain, seizure, CVA, palpatations, mental health, musculoskeletal)? @ -Differential Musculoskeletal: Muscular strain, contusion, ligament sprain, fracture, arthritis, septic arthritis, bursitis, cellulitis, muscle spasm, nerve compression, DVT, arterial occlusion, herpes zoster, electrolyte abnormality, tumor.... This is not meant to be in all inclusive list EKG interpreted by me (3pts min.). @ -None done X-rays interpreted by me (1pt min.). @ -Right hip AP pelvis x-ray interpreted by me negative for acute fractures or dislocations. CT interpreted by me (1pt min.). @ -None done U/S interpreted by me (1pt. min.). @ -None done What testing was considered but not performed or refused? (CT, X-rays, U/S, labs)? Why? @ -None What meds were considered but not given or refused? Why? @ -None Did you discuss the management of the patient with other professionals (professionals i.e. TONYA Segal, DEBURRING MACHINE OPERATOR, lab, RT, psych nurse, psychiatric social worker supervisor, olap developer, teacher, tactical/mobile watch officer, nurse case management)? Give summary @ -No Was smoking cessation discussed for >3mins.? @ -No Was critical care preformed (if so, how long)? @ -No Were there social determinants of health that impacted care today? How? (Homelessness, low income, unemployed, alcoholism, drug addiction, transportation, low edu. Level, literacy, decrease access to med. care, usp, rehab)? @ -No Was there de-escalation of care discussed even if they declined (Discuss DNR or withdrawal of care, Hospice)? DNR status @ -No What co-morbidities impacted this encounter? (DM, HTN, Smoking, COPD, CAD, Cancer, CVA, ARF, Chemo, Hep., AIDS, mental health diagnosis, sleep apnea, morbid obesity)? @ -None Was patient admitted / discharged? Hospital course, mention meds given and route, prescriptions, significant lab abnormalities, going to OR and other perti nent info. @ -Discharge. 79-year-old female presented to the ER for evaluation of right hip pain. Patient is neurovascularly intact. There is no rashes or wounds. Patient has full active range of motion. Pain with external rotation of femur. Xrays in the ER negative for acute process. Pain believed to be sciatica for which patient will be started on steroids. Advised patient to continue taking Tylenol for pain control and follow-up closely with PCP. Strict return parameters discussed. Patient discharged in stable condition. Patient verbally expressed understanding and agreement with care plan. Case discussed with ED attending, Dr. Stauffer. Undiagnosed new problem with uncertain prognosis? @ -No Drug Therapy requiring intensive monitoring for toxicity (Heparin, Nitro, Insulin, Cardizem)? @ -No Were any procedures done? @ -No Diagnosis/symptom? @ -Hip pain Acute, or Chronic, or Acute on Chronic? @ -Acute Uncomplicated (without systemic symptoms) or Complicated (systemic symptoms)? @ -Uncomplicated Side effects of treatment? @ -No Exacerbation, Progression, or Severe Exacerbation? @ -No Poses a threat to life or bodily function? How? (Chest pain, [place], [place], pneumonia, PE, COPD, DKA, ARF, appy, cholecystitis, CVA, Diverticulitis, Homicidal, Suicidal, threat to staff... and all critical care pts) @ -No - Radiology Data Radiology results: report reviewed, image reviewed Disposition Clinical Impression: Hip pain Disposition: HOME SELF-CARE Condition: Stable Instructions (If sedation given, give patient instructions): Sciatica (ED), Piriformis Syndrome (ED) Additional Instructions: Follow-up with PCP. Return to the ER for any new or worsening concerns. Be aware steroids may increase blood sugars. Prescriptions: predniSONE 50 mg PO DAILY #5 tab Is patient prescribed a controlled substance at d/c from ED?: No Referrals: Musa Louis MD [Primary Care Provider] - 1-2 days Time of Disposition: 14:19
--- NOTE | 2024-09-27 14:10 | XR ---
EXAMINATION TYPE: XR Hip RT and AP Pelvis DATE OF EXAM: 09/27/2024 2:06 PM COMPARISON: None CLINICAL INDICATION: Female, 79 years old with history of pain; PHH, pain TECHNIQUE: XR Hip RT and AP Pelvis; hip was examined in the frontal and lateral projections and a AP pelvis. FINDINGS: No evidence for acute process, joint dislocation or significant soft tissue swelling. Osteo phyte formation of the superior acetabulum of the hip. There is mild joint space narrowing. Cam defor mity to the right femoral head. Degeneration changes of the lower spine. IMPRESSION: 1. No evidence for acute process. 2. Mild hip osteoarthrosis. 3. Cam deformities of the femoral heads. [facility], , 09/27/2024 2:08 PM
[2024-09-27] MEDS: LIDOCAINE 4% PATCH TOPICAL ONE (14:15)
[2024-09-27] MEDS: ACETAMINOPHEN TAB 325 MG TAB PO STA (14:15)
[2024-09-27 14:49] VITALS: BP 169/84; PULSE 60; RESP 16; TEMP 97.6
== END 2024-09-27 14:49 | disposition home or self-care (01) ==
LOC: EC 13:22
DX: M25.551 Pain in right hip (principal)
CPT/HCPCS: 73502; 99283

== ENCOUNTER → 2024-10-20 | Outpatient (CLI) | payer OTHER, MEDICARE ==
--- NOTE | 2024-10-20 09:44 | US ---
EXAMINATION TYPE: US arterial LE single level DATE OF EXAM: 10/20/2024 9:18 AM COMPARISONS: 07/20/2022 CLINICAL INDICATION: Female, 79 years old with history of I73.9 PERIPHERAL VASCULAR DISEASE, UNSPECIF IED; Cold legs TECHNIQUE: Systolic pressures were taken of the upper and lower extremity arteries with ankle-brachia l indices and toe brachial indices calculated bilaterally. History of: Smoker: No Hypertension: Yes Diabetic: Yes Hyperlipidemia: Yes TIA/CVA: Yes Previous Vascular Surgery: Yes CAD: Yes [place]: Yes Vascular Ulcers: No Claudication: No Gangrene: No FINDINGS: Doppler Waveforms: Right: Biphasic Left: Biphasic Pulse Volume Recording: Pressure Gradients: Brachial Artery systolic pressure: Right: 196 Left: 211 Posterior Tibial artery systolic pressure: Right: 199 Left: 210 Dorsalis Pedis artery systolic pressure: Right: 199 Left: 171 Toe artery systolic pressure: Right: 102 Left: 131 Ankle-Brachial Indices: Right: 0.94 Left: 1.0 Toe Brachial Indices: Right: 0.48 Left: 0.62 (Normal > 0.6; Mild 0.35 - 0.59, Moderate 0.12 - 0.34, Severe <0.12) IMPRESSION: RUPERTO: Evaluation suggests borderline peripheral artery disease right lower extremity. Toe-brachial Bra chial indices indicate mild disease right lower extremity with normal valuations on the left. [facility], , 10/20/2024 9:42 AM
== END | disposition home or self-care (01) ==
LOC: RADUSWWP 08:39
PROVIDERS: ATTEND Family Medicine
DX: I73.9 Peripheral vascular disease, unspecified (principal)
CPT/HCPCS: 93922

== ENCOUNTER → 2025-02-04 | Outpatient (CLI) | payer OTHER, MEDICARE ==
[2025-02-04 11:24] VITALS: BP 164/76; PULSE 62; RESP 16; TEMP 97.6
--- NOTE | 2025-02-04 11:45 | P.PROGSL ---
Subjective DATE: 02/04/2025 FOLLOW UP VISIT. Patient with obstructive sleep apnea hypopnea syndrome return to sleep center for follow-up visit. Information from previous visit have been reviewed. Patient is using PAP equipment every night for the whole night, getting PAP supplies in time. The patient does not have significant problems with the mask, PAP unit and humidification. [place] sleepiness scale is 2. I checked information from PAP unit. BPAP ST unit pressure 19/15 cm H2O with a respiratory rate 12. Usage is 100% for more then 4 hours, average 8.6 hours per night. Leak is 7 l/m, which is in acceptable range. Apnea Hypopnea Index is 6.8, which is borderline. MEDICATIONS have been reviewed, please see below. During physical exam: GENERAL: A pleasant patient without any distress. VITAL SIGNS: Please see below, weight is 184 lbs. HEENT: PERRLA, EOMI.low position of soft palate, [place] 4 . NECK: Supple. No JVD. LUNGS: Clear to percussion and to auscultation. Good air exchange. No wheezing or rhonchi. HEART: S1, S2 regular. ABDOMEN: Soft and nontender. Slightly obese EXTREMITIES: No clubbing or cyanosis. SAMPLE MOUNTER: Awake, alert, and oriented x3. Left-sided weakness. Impressions: 1. Obstructive and central sleep apnea-hypopnea syndrome. Patient demonstrated great compliance with treatment, benefiting from treatment. 2. Status post stroke with some residual left-sided weakness. 3. History of left leg DVT. 4. Hypertension. 5. History of iron deficiency anemia. 6. Hyperlipidemia. 7. Obesity, no changes of weight since previous visit. 8. Acid reflux. Plan: 1. Continue using PAP equipment every night for the whole night. 2. Sleep hygiene with regular time in bed for at least 7.5-8 hours 3. PAP unit should stay lower then position of the head. 4. Advised patient to remove all remaining water from humidifier canister daily and make it dry after each usage. Refill canister with fresh distilled water before each usage. 5. Watching weight. 6. Precautions related to driving. No driving if feel any sleepiness. 7. I will maintain prescription for PAP supplies including mask, tube, filters. 8. Follow up visit in 8 months or earlier if patient has any problems. Thank you very much for allowing me to participate in the management of your patient. Eliud Lara MD, PhD, FAASM. Diplomat of [place], Sleep Medicine Board by [employer] [facility] [place] Objective - Vital Signs Vital Signs: Vital Signs Temp 97.6 F 02/04/25 11:23 Pulse 62 02/04/25 11:23 Resp 16 02/04/25 11:23 BP 164/76 02/04/25 11:23 Pulse Ox 95 02/04/25 11:23 FiO2 Intake & Output 02/03/25 02/04/25 02/04/25 18:59 06:59 18:59 Weight 83.461 kg Home Medications: Home Medications Medication Instructions Recorded Confirmed Type Atorvastatin [Lipitor] 40 mg PO DAILY 08/09/20 02/04/25 History Citalopram Hydrobromide 20 mg PO DAILY 08/09/20 02/04/25 History [Citalopram HBr] Folic Acid 1 mg PO DAILY 08/09/20 02/04/25 History Omeprazole 20 mg PO DAILY 08/09/20 02/04/25 History Thyroid,Pork [[place] Thyroid] 60 mg PO DAILY 08/09/20 02/04/25 History metFORMIN HCL 500 mg PO HS 08/09/20 02/04/25 History Apixaban [Eliquis] 5 mg PO BID 10/17/21 02/04/25 History Gabapentin [Neurontin] 600 mg PO DAILY PRN 10/17/21 02/04/25 History Losartan Potassium 100 mg PO DAILY 10/17/21 02/04/25 History Metoprolol Tartrate [Lopressor] 100 mg PO BID 10/17/21 02/04/25 History Promethazine 6.25MG/5Ml [Phenergan 6.25 mg PO Q8H PRN 10/17/21 07/27/24 History Syrup] Docusate [Colace] 100 mg PO DAILY 12/12/21 07/27/24 History Ergocalciferol [Vitamin D2 (1250 1,250 mcg PO WEEKLY 12/12/21 07/27/24 History Mcg = 23637 Iu)] Meclizine [Antivert] 12.5 mg PO DAILY 12/12/21 09/09/24 History Mirabegron [Myrbetriq] 25 mg PO DAILY 12/12/21 07/27/24 History Montelukast [Singulair] 10 mg PO DAILY 01/08/24 02/04/25 History Repaglinide [Prandin] 0.5 mg PO ONCE 09/09/24 09/09/24 History predniSONE 50 mg PO DAILY #5 tab 09/27/24 Rx
== END ==
LOC: 3 N SLEEP 11:18
PROVIDERS: ATTEND Internal Medicine
DX: G47.33 Obstructive sleep apnea (adult) (pediatric) (principal); I10 Essential (primary) hypertension; E78.5 Hyperlipidemia, unspecified; E66.9 Obesity, unspecified; K21.9 Gastro-esophageal reflux disease without esophagitis; Z86.2 Personal history of diseases of the blood and blood-forming organs and certain disorders involving the immune mechanism; Z86.718 Personal history of other venous thrombosis and embolism; Z86.73 Personal history of transient ischemic attack (TIA), and cerebral infarction without residual deficits; Z99.89 Dependence on other enabling machines and devices; Z88.1 Allergy status to other antibiotic agents; Z88.2 Allergy status to sulfonamides; Z68.41 Body mass index [BMI] 40.0-44.9, adult
CPT/HCPCS: 99212